=== PATIENT | male | born 1950 | race Caucasian/White ===

== ENCOUNTER → 2017-07-24 | Outpatient (CLI) | payer MEDICARE ==
[~2017-07-24] MED LIST: ALLOPURINOL300 MG PO; ASPIR 8181 MG PO; ATORVASTATIN CA40 MG PO; DIOVAN HCT 3201 EACH PO; FENOFIBRATE67 MG PO; LANTUS100 UNITS/ INJ; MULTI-VITAMIN1 EACH PO; NAPROXEN500 MG PO; NOVOLOG MI100 UNITS/ INJ; SYNTHROID50 MCG PO; VICTOZA 3-0.6 MG/0.1 INJ; VITAMIN B-122500 MCG PO; VITAMIN D31000 UNI1 PO
--- NOTE | 2017-07-24 09:34 | Diagnostic Imaging Report ---
PROCEDURE:X-RAY ABDOMEN - KUB COMPARISON:Patients [facility], DX, ABDOMEN-1VIEW (KUB), 11/02/2016, 8:24. INDICATIONS:CALCULUS OF KIDNEY FINDINGS: Again identified is a Bard retrievable IVC filter. There are no dilated loops of bowel to suggest obstruction. There are no masses or abnormal calcifications. There is moderate interference overlying the renal shadows due to overlapping bowel gas and fecal material. There is no evidence of free air. No acute osseous abnormalities are present. CONCLUSION: No acute abdominal abnormality. Rajan Reyes D.O. Dictated by: Rajan Reyes D.O. on 07/24/2017 at 9:35 Electronically approved by: Rajan Reyes D.O. on 07/24/2017 at 9:35
== END ==
LOC: RAD 07:40
PROVIDERS: ATTEND Urology
DX: N20.0 Calculus of kidney (principal)
CPT/HCPCS: 74018

== ENCOUNTER → 2017-12-18 | Outpatient (CLI) | payer MEDICARE ==
--- NOTE | 2017-12-18 12:19 | Diagnostic Imaging Report ---
PROCEDURE:X-RAY ABDOMEN - KUB COMPARISON:KUB 07/24/17. INDICATIONS:CALCULUS OF KIDNEY FINDINGS: Overlying bowel gas partially obscures visualization of the kidney. There are no calcifications projected over the renal shadows, expected course of the ureters or bladder. There is a non-obstructed bowel-gas pattern. There are no acute osseous abnormalities. The lung bases are clear. Retrievable IVC Filter is again noted. Status post cholecystectomy. CONCLUSION: No radiographic evidence of renal stone. Dictated by: BRYN ONEILL M.D. on 12/18/2017 at 10:24 Electronically approved by: BRYN ONEILL M.D. on 12/18/2017 at 10:24
== END ==
LOC: RAD 08:52
PROVIDERS: ATTEND Urology
DX: N20.0 Calculus of kidney (principal)
CPT/HCPCS: 74018

== ENCOUNTER → 2018-11-27 | Day surgery (SDC) | payer MEDICARE ==
[2018-11-22 10:53] LABS: BASOPHILS % 0.5 % (0.0-1.0); EOSINOPHILS # (AUTO) 0.2 (0.0-0.4); HEMATOCRIT 43.4 % (38.2-49.6); HEMOGLOBIN 14.2 g/dL (14.0-18.0); LYMPHOCYTES # (AUTO) 1.7 (1.0-3.2); LYMPHOCYTES % 20.5 % (18.0-39.1); MEAN CORPUSCULAR HEMOGLOBIN 30.5 pg (28-32); MEAN CORPUSCULAR HGB CONC 32.7 g/dL (31-35); MEAN CORPUSCULAR VOLUME 93.1 fL (81-99); MONOCYTES # (AUTO) 0.6 (0.2-0.8); MONOCYTES % 7.3 % (4.4-11.3); NEUTROPHILS # (AUTO) 5.5 (2.1-6.9); NEUTROPHILS % 68.1 % (38.7-80.0); PLATELET COUNT 235 x10e3/uL (140-360); RED BLOOD COUNT 4.66 x10e6/uL (4.3-5.7)
[2018-11-22 11:08] LABS: INR 1.46; PROTHROMBIN TIME 18.3 seconds (11.9-14.5)
[2018-11-22 11:15] LABS: ALBUMIN 3.8 g/dL (3.5-5.0); ALBUMIN/GLOBULIN RATIO 1.2 (0.8-2.0); CALCIUM 9.5 mg/dL (8.4-10.2); CREATININE, SERUM 1.6 mg/dL (0.72-1.25)
--- NOTE | 2018-11-22 14:08 | NUR ---
Called and left message with Dr. Wetzel regarding abnormal labs. Waiting for call back.
--- NOTE | 2018-11-22 14:30 | NUR ---
Dr. Wetzel called back and was notified of BUN 40, creatinine 1.60, and eGFR 43. Dr. Wetzel requested lab results to be faxed to [phone].
--- NOTE | 2018-11-22 14:35 | NUR ---
Lab results faxed to [phone].
[~2018-11-27] VITALS: Ht 170.2 cm; Wt 142.9 kg
[2018-11-27] VITALS (7 sets, daily range): BP systolic 105–123; BP diastolic 53–64
[~2018-11-27] MED LIST changes: +FENTANYL CITRATE/PF 100MCG/2 ML INJ ONE; +FUROSEMIDE40 MG PO; +HEPARIN SOD (PORCINE) 1000 UNIT/ML 30ML ONE; +HEPARIN SOD/SOD CHLORIDE 2,000 ML ONE; +IOPAMIDOL 370 MG/ML 200 ML INFUS..BTL INJ ONE; +LEVEMIR100 UNIT/1 SC; +LIDOCAINE HCL 2% LOCAL 20 ML VIAL ONE; +LISINOPRIL2.5 MG PO; +MAGNESIUM GLUCO30 MG PO; +METOPROLOL SUCC50 MG PO; +MIDAZOLAM HCL 2 MG/2 ML VIAL ONE; +NITROGLYCERIN/D5W 200 MCG/ML 250 ML ONE; +NOVOLOG100 UNITS1 SC; +PANTOPRAZOLE SO40 MG PO; +SODIUM CHLORIDE 0.9% 1000ML 1,000 ML ONE; +VERAPAMIL HCL 2.5 MG/ML 2 ML VIAL ONE; +VITAMIN B-121000 MC1 PO; +WARFARIN SODIU2.5 MG PO; +[UNRECOGNIZED DRUG - OTHER] SC
--- OUTSIDE RECORDS SUMMARY | 2018-11-27 11:19 | XMS REPORT | Continuity of Care Document ---
Author Author [email or web address] Address Unknown Phone Unavailable Care Team Providers Care Owner Operator Tanker Truck Driver Name Role Phone [email or web address] Unavailable Unavailable Problems Problem Status Onset Date Classification Date Reported Comments Source Lumbar radiculopathy Active Problem 07/14/2016 Mohamud Dalton Lumbar spinal stenosis Active Diagnosis 07/04/2016 Mohamud Dalton Spasm Active Diagnosis 07/04/2016 Mohamud Dalton Degenerative disc disease, lumbar Active Diagnosis 07/04/2016 Mohamud Dalton Medications Medication Details Route Status Patient Instructions Ordering Provider Order Date Source [place] 1 tablet as needed Orally Active 10-325 MG Orally TID Yissel 07/03/2016 Mohamud Dalton Allopurinol 1 tablet Orally Active 300 MG Orally Once a day [facility] [place] Mohamud Dalton NovoLog Flexpen as directed Subcutaneous Active 100 UNIT/ML Subcutaneous [facility] [place] Mohamud Dalton Meloxicam 1 tablet Orally Active 7.5 MG Orally Once a day [facility] [place] Mohamud Dalton Synthroid 1 tablet Orally Active 50 MCG Orally Once a day [facility] [place] Mohamud Dalton Naprosyn 1 tablet as needed Orally Active 500 MG Orally BID Yissel Mohamud Dalton Victoza 0.2 ml Subcutaneous Active 18 MG/3ML Subcutaneous Once a day [facility] [place] Mohamud Dalton Diazepam 1 tablet as needed Orally Active [address] [facility] [place] Mohamud Dalton Lantus SoloStar as directed Subcutaneous Active 100 UNIT/ML Subcutaneous [facility] [place] Mohamud Dalton [place] 1 tablet as needed Orally Active 10-325 MG Orally every 6 hrs Yissel Mohamud Dalton Valsartan-Hydrochlorothiazide 1 tablet Orally Active 320-25 MG Orally Once a day Yissel Mohamud Dalton Atorvastatin Calcium 1 tablet Orally Active 40 MG Orally Once a day Yissel Mohamud Dalton Fenofibrate Micronized 1 capsule with a meal Orally Active 67 MG Orally Once a day Yissel Mohamud Dalton Gabapentin 1 capsule Orally Active 400 MG Orally Three times a day Yissel Mohamud Dalton Allergies, Adverse Reactions, Alerts No Known Medication Allergies Immunizations No Data Provided for This Section Results No Data Provided for This Section Pathology Reports No Data Provided for This Section Diagnostic Reports No Data Provided for This Section Consultation Notes No Data Provided for This Section Discharge Summaries No Data Provided for This Section History and Physicals No Data Provided for This Section Vital Signs Vital Sign Value Date Comments Source Weight 292.8 07/03/2016 Mohamud Dalton Height 67 07/03/2016 Mohamud Dalton Temperature Oral (F) 98.5 F 07/03/2016 Mohamud Dalton Heart Rate 81 07/03/2016 Mohamud Dalton Diastolic (mm Hg) 70 07/03/2016 Mohamud Dalton Systolic (mm Hg) 142 07/03/2016 Mohamud Dalton Encounters No Data Provided for This Section Procedures No Data Provided for This Section Assessment and Plan No Data Provided for This Section Plan of Care No Data Provided for This Section Social History No Data Provided for This Section Family History No Data Provided for This Section Advance Directives No Data Provided for This Section Functional Status No Data Provided for This Section
--- OUTSIDE RECORDS SUMMARY | 2018-11-27 11:19 | XMS REPORT ---
Author Author Gio Dey Organization [employer] Address Unknown Phone Unavailable Care Team Providers Care Cordwainer Name Role Phone Gio Dey CP Unavailable Allergies No Known Allergies Problems Problem Type Condition Code Onset Dates Condition Status Problem Lumbar radiculopathy M54.16 Active Medications No Known Medications Results No Known Results Summary Purpose [employer] Submission
--- OUTSIDE RECORDS SUMMARY | 2018-11-27 11:19 | XMS REPORT ---
Author Author [facility] Address Unknown Phone Unavailable Care Team Providers Care Rental Clerk Tool And Equipment Name Role Phone DOMINIC BARTON Unavailable Unavailable Problems This patient has no known problems. Allergies, Adverse Reactions, Alerts This patient has no known allergies or adverse reactions. Medications This patient has no known medications. Encounters Start Date/Time End Date/Time Encounter Type Admission Type Attending Clinicians Care Facility Care Department Encounter ID 2018-10-30 05:46:00 2018-10-30 05:46:00 [id number] Results Test Description Test Time Test Comments Text Results Atomic Results Result Comments ABDOMEN-1VIEW (KUB) 2017-12-18 10:24:00 [place] [address] Patient Name: ZAID ALAMO MR #: [id number] : 1950 Age/Sex: 67/M Req #: [id number] Adm Physician: Ordered by: DOMINIC BARTON MD Report #: [id number] Location: [facility] Room/Bed: Procedure: DX/ABDOMEN-1VIEW (KUB) Exam Date: 12/18/17 Exam Time: 917 REPORT STATUS: Signed PROCEDURE: X-RAY ABDOMEN - KUB COMPARISON: KUB 07/24/17. INDICATIONS: CALCULUS OF KIDNEY FINDINGS: Overlying bowel gas partially obscures visualization of the kidney. There are no calcifications projected over the renal shadows, expected course of the ureters or bladder. There is a non-obstructed bowel-gas pattern. There are no acute osseous abnormalities. The lung bases are clear. Retrievable IVC Filter is again noted. Status post cholecystectomy. CONCLUSION: No radiographic evidence of renal stone. Dictated by: BRYN ONEILL M.D. on 12/18/2017 at 10:24 Electronically approved by: BRYN ONEILL M.D. on 12/18/2017 at 10:24 Dictated By: BRYN ONEILL MD 1024 Transcribed By: JAMISON on 12/18/17 1024 C OPY TO: DOMINIC BARTON MD ABDOMEN-1VIEW (KUB) [place] [address] Patient Name: ZAID ALAMO MR #: [id number] : 1950 Age/Sex: 67/M Req #: [id number] Adm Physician: Ordered by: DOMINIC BARTON MD Report #: [id number] Location: [facility] Room/Bed: Procedure: [id number] DX/ABDOMEN-1VIEW (KUB) Exam Date: 07/24/17 Exam Time: 0800 REPORT STATUS: Signed PROCEDURE: X-RAY ABDOMEN - KUB COMPARISON: [facility], DX, ABDOMEN-1VIEW (KUB), 11/02/2016, 8:24. INDICATIONS: CALCULUS OF KIDNEY FINDINGS: Again identified is a Bard retrievable IVC filter. There are no dilated loops of bowel to suggest obstruction. There are no masses or abnormal calcifications. There is moderate interference overlying the renal shadows due to overlapping bowel gas and fecal material. There is no evidence of free air. No acute osseous abnormalities are present. CONCLUSION: No acute abdominal abnormality. Niko Reyes D.O. Dictated by: Niko Reyes D.O. on 07/24/2017 at 9:35 Electronically approved by: Niko Reyes D.O. on 07/24/2017 at 9:35 Dictated By: NIKO REYES DO 4 Transcribed By: JAMISON on 07/24/17934 COPY TO: DOMINIC BARTON MD
--- OUTSIDE RECORDS SUMMARY | 2018-11-27 11:19 | XMS REPORT ---
Author Author Gio Dey Organization [employer] Address Unknown Phone Unavailable Care Team Providers Care Education Dean Name Role Phone Gio Dey CP Unavailable Allergies No Known Allergies Problems Problem Type Condition Code Onset Dates Condition Status Problem Lumbar radiculopathy M54.16 Active Medications No Known Medications Results No Known Results Summary Purpose [employer] Submission
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
--- OUTSIDE RECORDS SUMMARY | 2018-11-27 11:19 | XMS REPORT ---
Author Author Gio Dey Organization [employer] Address Unknown Phone Unavailable Care Team Providers Care Facility Maintenance Technician Name Role Phone Gio Dey CP Unavailable Allergies No Known Allergies Problems Problem Type Condition Code Onset Dates Condition Status Assessment Lumbar radiculopathy M54.16 Active Assessment Lumbar spinal stenosis M48.06 Active Problem Lumbar radiculopathy M54.16 Active Assessment Spasm R25.2 Active Assessment Degenerative disc disease, lumbar M51.36 Active Medications Medication Code System Code Instructions Start Date End Date Status Dosage Allopurinol [facility] [address]-59 300 MG Orally Once a day Active 1 tablet NovoLog Flexpen [facility] [address]-78 100 UNIT/ML Subcutaneous Active as directed Meloxicam [facility] [address]-99 7.5 MG Orally Once a day Active 1 tablet Synthroid [facility] [address]-99 50 MCG Orally Once a day Active 1 tablet Naprosyn [facility] [address]-86 500 MG Orally BID Active 1 tablet as needed Victoza [facility] [address]-94 18 MG/3ML Subcutaneous Once a day Active 0.2 ml Diazepam [facility] [address]-34 5 MG Orally daily Active 1 tablet as needed Lantus SoloStar [facility] [address]-21 100 UNIT/ML Subcutaneous Active as directed [place] [facility] [address]-66 10-325 MG Orally every 6 hrs Active 1 tablet as needed Diazepam [facility] [address]-16 5 MG Orally Twice a day Active 1 tablet as needed Valsartan-Hydrochlorothiazide [facility] [address]-02 320-25 MG Orally Once a day Active 1 tablet [place] [facility] [address]-58 10-325 MG Orally TID July 03, 2016 August 02, 2016 Active 1 tablet as needed Atorvastatin Calcium [facility] [address]-84 40 MG Orally Once a day Active 1 tablet Fenofibrate Micronized [facility] [address]-64 67 MG Orally Once a day Active 1 capsule with a meal Gabapentin [facility] [address]-16 400 MG Orally Three times a day Active 1 capsule Vital Signs Date/Time: July 03, 2016 BMI 45.85 Index Weight 292.8 lbs Height 67 in Temperature 98.5 F Cardiac Monitoring Heart Rate 81 /min Blood Pressure Diastolic 70 mm Hg Blood Pressure Systolic 142 mm Hg Results No Known Results Summary Purpose [employer]Works Submission
--- NOTE | 2018-11-27 11:30 | NUR ---
1130qam Received pt ambulatory for [facility] Dr Wetzel , prepped for procedure. Alert oriented and appropriate, PERRLA,s/p Bilateral (cataract surgery) respirations even and unlabored to room air. Pulses x4 extremities equal Dopplerx4. Pedal pulses PT/DP and marked. Cap fill brisk < 3 sec. bilateral feet semi cool yellow sock on.. Skin warm and dry integrity appears intact in general. IV 20g started Monie CALLAWAY cannulation x1. started and presents healthy w/o s/s of infiltration or complaint. Abdomen soft and supple. pt offered toileting, denies need to urinate or defecate. Personal affects with family Daughter Catrina [phone]. Family at bedside. Pt and family verbalizes understanding of POC. No Pre-Op Meds ordered. Family at bedside NO concerns or questions voice. Pre op check list competed. Borderline renal values Handoff report to Monie CALLAWAY Ready for procedure.ds/alex
--- NOTE | 2018-11-27 13:30 | NUR ---
1330p bedside report received from Nataly CALLAWAY. Alert oriented and appropriate, PERRLA, respirations even and unlabored to room air. Pulses x4 extremities equal and strong. Pedal pulses PT/DPx4 and marked. Cap fill brisk < 3 sec. Skin warm and dry integrity appears D/I IV 20g to left hand dial a flow 100cchr presents healthy w/o s/s of infiltration or complaint. Abdomen soft and supple. pt offered toileting, denies need to urinate or defecate. No personal affects with patient. Family Catrina daughter at bedside. Pt and family verbalizes understanding of POC. Pr Currently w/o complaint of pain or need. No eduardo issues pain pallorpressure or dysrthmia. Rt Tr band air removal started at 12n ok to dc if stsis achieved at 1505pm. ds/rn
--- NOTE | 2018-11-27 14:00 | NUR ---
1400 ADIAL Compression removal: Initial Cuff volume 12 cc -2 cc Removed No hematoma/bleeding noted with normal neurovascular function. 1415 -2 cc Removed No hematoma/ bleeding noted with normal neurovascular function. 1429 -2 cc Removed No hematoma/bleeding noted with normal neurovascular function. 1430pm RADIAL RECOVERY COMPLETED Stasis achieved sterile 2x2,Tegaderm, Coban dressing No hematoma, bleeding noted with normal neurovascular function. Wrist splint in place. Pt instructed on POC. Ds/Rn
--- NOTE | 2018-11-27 15:05 | NUR ---
1505Pt meets DC criteria.Back to baseline orientation. Rt Radial site assessed for s/s of complication and presence of hematoma. warm, dry, no discolor, and pulses present. IV removed from left hand. Distal tip appears intact. VS WNL. Pt denies pain, sob, or need at this time. Family daughter at bedside. Review of discharge paperwork and follow up instructions. verbalized understanding. Pt to wheelchair and transported to front of hospital. Transferred to private vehicle under own strength w/o incident with DC paperwork in hand. - ds/rn
--- NOTE | 2018-11-27 16:46 | Operative Report ---
DATE OF PROCEDURE: 11/27/2018 SURGEON: Neptali Garcia MD INDICATION FOR PROCEDURE: Chest pain and abnormal stress test. PREPROCEDURE ASSESSMENT: The risks, benefits, and alternatives to treatment were explained to the patient prior to the procedure. Informed consent was obtained as documented in the medical record. The patient was deemed to be an appropriate candidate for moderate sedation. PROCEDURES PERFORMED: 1. Coronary angiography, right radial approach. 2. Left heart catheterization. PROCEDURE DETAILS: The patient was brought to the cardiac catheterization laboratory in a fasting state. Right wrist was prepped and draped in a sterile fashion. A 6-[place] Slender sheath was inserted in the right radial artery using modified Seldinger technique. Coronary angiography and left heart catheterization were performed using Jessica 5-[place] radial catheter. All catheters were removed over a wire. Multiple orthogonal views were taken of each coronary artery. Access site was closed using a TR band. Case ended without any significant complications. FINDINGS: 1. Left main, short, large caliber. 2. LAD, large caliber, goes to the apex, one significant diagonal branch. 3. Left circumflex, very large dominant left circumflex. Two significant OM branches and a very large PDA coming from distal left circ. No significant disease. 4. RCA, small nondominant RCA. No significant disease. 5. Left heart catheterization, no gradient across the aortic valve. LV pressure 130. LV end-diastolic pressure 17 to 20 mmHg respiration. GRAFTS AND IMPLANTS: None. SPECIMEN REMOVED: None. ESTIMATED BLOOD LOSS: 20 mL. COMPLICATIONS: None. FINAL RECOMMENDATIONS: 1. TR band deflation at 30 minutes. 2. Follow up in clinic 2 weeks post procedure with Dr. Kortney Wetzel. Neptali Garcia MD KVP/MODL /[id number]
== END | disposition home or self-care (01) ==
LOC: CATH LAB 11:12
PROVIDERS: ATTEND Internal Medicine
DX: I25.10 Atherosclerotic heart disease of native coronary artery without angina pectoris (principal); R94.39 Abnormal result of other cardiovascular function study; I10 Essential (primary) hypertension; R94.31 Abnormal electrocardiogram [ECG] [EKG]; I26.02 Saddle embolus of pulmonary artery with acute cor pulmonale; I51.7 Cardiomegaly; E11.9 Type 2 diabetes mellitus without complications; E66.01 Morbid (severe) obesity due to excess calories; E78.00 Pure hypercholesterolemia, unspecified; Z88.1 Allergy status to other antibiotic agents; Z88.8 Allergy status to other drugs, medicaments and biological substances; Z79.4 Long term (current) use of insulin; Z79.01 Long term (current) use of anticoagulants; Z68.43 Body mass index [BMI] 50.0-59.9, adult; Z95.828 Presence of other vascular implants and grafts; Z82.49 Family history of ischemic heart disease and other diseases of the circulatory system; Z82.3 Family history of stroke
CPT/HCPCS: 36415; 80053; 85025; 85610; 93458; C1887; J1644; J2001; J2250; J3010; J7030; Q9967

== ENCOUNTER → 2019-12-04 | Outpatient (CLI) | payer MEDICARE ==
[~2019-12-04] MED LIST changes: -FENTANYL CITRATE/PF 100MCG/2 ML INJ ONE; -HEPARIN SOD (PORCINE) 1000 UNIT/ML 30ML ONE; -HEPARIN SOD/SOD CHLORIDE 2,000 ML ONE; -IOPAMIDOL 370 MG/ML 200 ML INFUS..BTL INJ ONE; -LIDOCAINE HCL 2% LOCAL 20 ML VIAL ONE; -MIDAZOLAM HCL 2 MG/2 ML VIAL ONE; -NITROGLYCERIN/D5W 200 MCG/ML 250 ML ONE; -SODIUM CHLORIDE 0.9% 1000ML 1,000 ML ONE; -VERAPAMIL HCL 2.5 MG/ML 2 ML VIAL ONE
--- NOTE | 2019-12-04 08:44 | Diagnostic Imaging Report ---
Abdomen, 1 view. History: History of kidney stones. Comparison: 12/18/2017. Findings: Air is scattered throughout nondilated small and large bowel. There are no masses or abnormal calcifications. Cholecystectomy clips are present in the right upper quadrant. The osseous structures are intact. IMPRESSION: Non-specific bowel gas pattern. No visible renal calculi. Signed by: Lorne Yanez on 12/04/2019 8:41 AM
== END ==
LOC: RAD 07:31
PROVIDERS: ATTEND Urology
DX: N20.0 Calculus of kidney (principal)
CPT/HCPCS: 74018

== ENCOUNTER → 2020-07-09 | Outpatient (CLI) | payer MEDICARE | LOC: RAD 07:46 | PROVIDERS: ATTEND Urology | DX: N20.0 Calculus of kidney (principal) | CPT/HCPCS: 74018 ==

== ENCOUNTER → 2020-10-25 | Outpatient (CLI) | payer MEDICARE | LOC: RAD 07:16 | PROVIDERS: ATTEND Urology | DX: N20.0 Calculus of kidney (principal) | CPT/HCPCS: 74018 ==

== ENCOUNTER → 2021-07-13 | Outpatient (CLI) | payer MEDICARE | LOC: RAD 07:38 | PROVIDERS: ATTEND Urology | DX: N20.0 Calculus of kidney (principal) | CPT/HCPCS: 74018 ==